=== PATIENT | female | born 1995 | race African-American/Black ===

== ENCOUNTER 2021-01-14 10:18 | Outpatient (REF) | payer OTHER, SELFPAY ==
[2021-01-15 00:19] LABS: CT PCR NOT DETECTED (Not Detect.); NG PCR NOT DETECTED (Not Detect.)
[2021-01-15 09:06] LABS: BV Int Neg Control Negative (Negative); BV Int Pos Control Positive (Positive)
== END 2021-01-14 10:19 | disposition home or self-care (01) ==
LOC: HO.LAB 10:18
PROVIDERS: Visit Provider Obstetrics & Gynecology
DX: Z01.419 Encounter for gynecological examination (general) (routine) without abnormal findings (principal); Z11.3 Encounter for screening for infections with a predominantly sexual mode of transmission; N93.9 Abnormal uterine and vaginal bleeding, unspecified
CPT/HCPCS: 87480; 87491; 87510; 87591; 87660; 88142

== ENCOUNTER 2021-01-19 10:40 | Outpatient (REF) | payer OTHER, SELFPAY ==
[2021-01-19 11:53] LABS: Estimated Average Glucose 94 mg/dL; Hemoglobin A1c % 4.9 %
[2021-01-19 12:15] LABS: TSH reflex Free T4 1.34 uIU/mL (0.32-4.0)
[2021-01-19 22:34] LABS: HIV AB/AG Nonreactive (Nonreactive)
[2021-01-21 07:58] LABS: HBsAGNum1 0.23 S/CO (0.00-0.99); HIV Num 1 0.06 S/CO (0.00-0.99); Hepatitis B Surface Antigen Negative (Negative)
[2021-01-21 08:07] LABS: Syphilis Screen Nonreactive (Nonreactive)
[2021-01-21 18:08] LABS: Prolactin 11.1 ng/mL
== END 2021-01-19 10:41 | disposition home or self-care (01) ==
LOC: HO.LAB 10:40
PROVIDERS: Visit Provider Obstetrics & Gynecology
DX: N93.9 Abnormal uterine and vaginal bleeding, unspecified (principal); L83 Acanthosis nigricans; Z11.3 Encounter for screening for infections with a predominantly sexual mode of transmission
CPT/HCPCS: 36415; 83036; 83498; 84146; 84443; 86780; 87340; 87389

== ENCOUNTER → 2021-02-06 12:01 | Outpatient (BNVA) | payer OTHER, SELFPAY | PROVIDERS: Visit Provider Obstetrics & Gynecology ==

== ENCOUNTER 2022-12-29 09:14 | Outpatient (REF) | payer OTHER, SELFPAY ==
[2022-12-29 11:08] LABS: Hematocrit 40.6 % (37.0-47.0); Hemoglobin 13.9 g/dl (12.0-16.0); Mean Corpuscular HGB Conc 34.2 g/dl (31.0-35.0); Mean Corpuscular Hemoglobin 26.3 pg (27.0-33.0); Mean Corpuscular Volume 76.9 fL (80.0-98.0); Mean Platelet Volume 10.3 fL (9.4-12.3); Platelet Count 335 X10*3/uL (160-400); Red Blood Count 5.28 X10*6/uL (4.20-5.50); Red Cell Distribution Width 14.2 % (11.0-16.0); White Blood Count 6.4 X10*3/uL (4.8-10.8)
[2022-12-29 12:07] LABS: HBc Num1 0.07 S/CO (0.00-0.79); HCG Quantitative < 2 mIU/mL; HIV AB/AG Nonreactive (Nonreactive); HIV Num 1 0.07 S/CO (0.00-0.99); Hepatitis B Core Antibody Nonreactive (Nonreactive); Thyroid Stimulating Hormone 1.17 uIU/mL (0.32-4.0); ~HepC Num1 0.14 S/CO (0.00-0.79); ~Hepatitis C Antibody Nonreactive (Nonreactive)
[2022-12-29 12:09] LABS: Syphilis Screen Nonreactive (Nonreactive)
[2022-12-29 16:01] LABS: CT PCR NOT DETECTED (Not Detect.); NG PCR NOT DETECTED (Not Detect.)
[2022-12-30 09:07] LABS: BV Int Neg Control Negative (Negative); BV Int Pos Control Positive (Positive)
[2022-12-31 01:39] LABS: DHEA Sulfate 77 mcg/dL (14-349); Prolactin 12.5 ng/mL
[2023-01-06 11:48] LABS: Testosterone, Free 6.9 pg/mL (0.1-6.4); Testosterone, Total 63 ng/dL (2-45)
== END 2022-12-29 09:15 | disposition home or self-care (01) ==
LOC: HO.LAB 09:14
PROVIDERS: Visit Provider Advanced Practice Midwife
DX: Z01.419 Encounter for gynecological examination (general) (routine) without abnormal findings (principal); L68.0 Hirsutism; L70.9 Acne, unspecified; N92.6 Irregular menstruation, unspecified; N89.8 Other specified noninflammatory disorders of vagina; E28.2 Polycystic ovarian syndrome; Z20.2 Contact with and (suspected) exposure to infections with a predominantly sexual mode of transmission
CPT/HCPCS: 0353U; 82627; 83498; 84146; 84402; 84403; 84443; 84702; 85027; 86704; 86780; 86803; 87389; 87480; 87510; 87660

== ENCOUNTER 2022-12-29 09:51 | Outpatient (REF) | payer OTHER, SELFPAY | END 2022-12-29 09:52 | disposition home or self-care (01) | LOC: HO.LNP 09:51 | PROVIDERS: Visit Provider Advanced Practice Midwife | DX: Z13.89 Encounter for screening for other disorder (principal) ==

== ENCOUNTER 2023-01-09 13:14 | Outpatient (REF) | payer OTHER, SELFPAY ==
--- NOTE | ~2023-01-09 | US_ITS ---
EXAMINATION: US PELVIS CLINICAL INFORMATION: Irregular menstruation. COMPARISON: Ultrasound pelvis 04/09/2018. TECHNIQUE: Ultrasound of the pelvis is performed using both transabdominal and transvaginal transducers along with Doppler. Transvaginal imaging is performed due to inadequate visualization transabdominally. FINDINGS: Uterus: The uterus is anteverted and measures 8.1 cm in length, 4.2 cm in AP and 4.1 cm in transverse dimension. The double wall endometrial thickness is 0.6 cm. The uterus is smooth in contour and has normal myometrial echogenicity. No visible fibroid. Adnexa: Both ovaries are visualized. There is normal color flow to the adnexa. There is no ovarian torsion. There is no pelvic ascites or fluid collection. Right ovary measures 3.4 x 2.7 x 2.3 cm. There are small follicles visualized. Previously right ovary measured 3.2 x 1.5 x 1.7 cm. Left ovary measures 3.7 x 2.3 x 3.2 cm. There are small peripheral follicles visualized. Previously left ovary measured 3.2 x 2.0 x 2.3 cm. There is no free fluid in the cul-de-sac. US/US pelvic and transvaginal IMPRESSION: 1. Unremarkable uterus. 2. Small bilateral ovarian follicular cysts. 3. There is no free fluid in cul-de-sac.
== END 2023-01-09 13:15 | disposition home or self-care (01) ==
LOC: HO.US 13:14
PROVIDERS: Visit Provider Advanced Practice Midwife
DX: N92.6 Irregular menstruation, unspecified (principal)
CPT/HCPCS: 76830; 76856

== ENCOUNTER → 2023-01-22 13:42 | Outpatient (BNVA) | payer OTHER, SELFPAY | PROVIDERS: Visit Provider Advanced Practice Midwife | DX: E28.2 Polycystic ovarian syndrome (principal); L68.0 Hirsutism; E66.01 Morbid (severe) obesity due to excess calories; Z68.41 Body mass index [BMI] 40.0-44.9, adult; Z71.2 Person consulting for explanation of examination or test findings | CPT/HCPCS: 99212 ==

== ENCOUNTER 2023-08-19 16:19 | Emergency (ER) | payer OTHER, SELFPAY ==
[2023-08-19 16:29] VITALS: BP 130/81; PULSE 95; RESP 117; TEMP 36.6; O2SAT 97; BMI 43.0
--- NOTE | 2023-08-19 16:35 | ED.GENADULT ---
HPI - General Adult General Chief complaint: Upper Respiratory Symptoms Stated complaint: throat pain, swollen, can't swallow Time Seen by Provider: 08/19/23 18:16 Source: patient Mode of arrival: ambulatory Limitations: no limitations History of Present Illness HPI narrative: 27 yold female presents to the ED for sore throat and coughing for one week. patient denies any chest pain, shortness of breath, drooling, or change in voice. Related Data Previous Rx's Medication Instructions Recorded medroxyprogesterone 10 mg tablet 10 mg PO DAILY 10 days #10 tabs 01/22/23 (Provera) Allergies Allergy/AdvReac Type Severity Reaction Status Date / Time No Known Allergies Allergy Verified 01/22/23 13:44 [No Known Allergies*] Review of Systems Review of Systems: sore throat and coughing Yes all other systems are reviewed and are negative PMFSH Past Medical History Medical History Hirsutism Morbid obesity with BMI of 45.0-49.9, adult PCOS (polycystic ovarian syndrome) Scoliosis Family History Family History Father Diabetes Renal failure Maternal Grandmother No problems noted. 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 Gender identity: Female Physical Exam ED Vital Signs: Vital Signs - 24 hr 08/19/23 16:29 Temperature 97.9 F Pulse Rate 95 Respiratory Rate 117 H Blood Pressure 130/81 Pulse Oximetry 97 Oxygen Delivery Method Room Air BMI result Body Mass Index 43.0 Const General: cooperative, healthy appearing, comfortable, no acute distress, well developed, alert and awake Orientation/consciousness: oriented to person, oriented to place, oriented to time and patient oriented x3 HENMT Head: Yes normal to inspection, Yes No palpable skull fracture present, Yes normocephalic and Yes atraumatic Ears: hearing grossly normal bilaterally, external ears normal, TM's normal bilaterally, TM normal on the right, TM normal on the left, EAC's normal, mastoids normal and no periauricular adenopathy General nose exam: Normal external nose present, Normal nares present and No nasal polyps present Face and sinus: Yes normal facial exam, Yes sinuses nontender and Yes face symmetric Mouth: Normal oral and palatal mucosa present, lip normal and tongue normal Teeth and gingiva: dentition normal and gingiva normal Throat: Yes posterior oropharynx normal, Yes tonsils normal and Yes uvula midline Eyes General: appearance normal, both eyes and all related structures Neck Neck: Yes normal visual inspection, Yes full ROM, Yes no lymphadenopathy, Yes no meningeal signs, Yes trachea midline, Yes supple, No anterior neck swelling and No tender Chest Chest palpation & inspection: normal inspection of the chest and normal palpation of entire chest wall Breast/axilla inspection: normal inspection of the breasts Resp Effort & Inspection: normal respiratory effort and able to speak in complete sentences Auscultation: clear to auscultation bilaterally Cardio Jugular venous distension: no JVD Heart sounds: S1 normal heart sound present and S2 normal heart sound present GI Inspection: Yes normal to inspection and No abdominal wall ecchymosis Palpation (GI): Soft to palpation, not firm, nontender, no guarding and not rigid General: Yes no CVA tenderness Back/Spine/Pelvis Back: no CVA tenderness and No back tenderness Skin General skin exam: no rashes or lesions noted, elasticity normal and turgor normal Neuro General: oriented to person, oriented to place, oriented to time, patient oriented x3, gait normal, tone normal, moves all extremities, Normal light touch and pain sensation, no meningeal signs, no focal motor deficits, CN's II-XI intact bilaterally and normal sensation to monofilament Extrem General: Yes normal to inspection, Yes full ROM and Yes capillary refill normal Right lower extremity: normal to inspection, full ROM and normal capillary refill Psych Appearance: grossly normal, well kempt and not disheveled Course Course Course Narrative: RME: 27 yold female presents to the ED for sore throat and cough for one week. patient denies any chest pain or shorntess of breath. negative for signs of peritonsillar abscess on inspecition of oral cavity. Medical Decision Making Medical Decision Making MDM Narrative: RME: 27 yold female presents to the ED sore throat for one week. Patient states couhing started today. Patient states no chest pain or shortness of breath. Patient denies any abdominal pain, drooling, neck swellng, change in voice, trouble eating food, or trouble drinking liquid. patient states no symptoms. Patient states no pleurisy, leg swelling, or calf pain. patient is well appearing. Differential Diagnosis Differential Diagnoses: The differential diagnosis associated with the presentation includes (Covid, RSV, strep, and influenza) Lab Data MDM Lab Attestation statement: I reviewed the patient's lab results. Labs: Lab Results 08/19/23 Range/Units 16:38 Influenza Type A (PCR) NEGATIVE (Negative) Influenza Type B (PCR) NEGATIVE (Negative) RSV RNA Qual (PCR) NEGATIVE (Negative) SARS-CoV-2 RNA (RT-PCR) NEGATIVE (Negative) S. pyogenes GrpA ADRIANNE Negative (Negative) External Record Review External record reviewed: Other (Prior Visist) Prescription Management I considered prescription management with: Other (cough medication, nsaids) Discharge Plan Discharge Clinical Impression: Upper respiratory infection, Pharyngitis Patient Disposition: Home, Self-Care Instructions: Pharyngitis (ED), Upper Respiratory Infection (ED) Additional Instructions: Return to the ED immediately for any drooling, change in voice, chest pain, shortness of breath, neck swelling, coughing up blood, fever, chills, or any other concerning symptoms. please follow up with PCP. Prescriptions: No Action medroxyprogesterone [Provera] 10 mg tablet 10 mg PO DAILY 10 Days Qty: 10 3RF Stand Alone Forms: Work/School Release Interventions: ED Discharge Assessment Last Done: 08/19/23 18:23 Discharge Date/Time: 08/19/23 18:23 Print Language: Algerian
[2023-08-19 17:31] LABS: IDNOW Serial# 08D9AD1C; Strep A Nucleic Acid Negative (Negative)
[2023-08-19 17:36] LABS: Influenza A PCR NEGATIVE (Negative); Influenza B PCR NEGATIVE (Negative); Resp Syncy Virus RNA Qual PCR NEGATIVE (Negative); SARS COV2 PCR INHOUSE NEGATIVE (Negative)
== END 2023-08-19 18:23 | disposition home or self-care (01) ==
PROVIDERS: Physician Assistant; Emergency Provider Internal Medicine
DX: J06.9 Acute upper respiratory infection, unspecified (principal); J02.9 Acute pharyngitis, unspecified; E66.9 Obesity, unspecified; Z68.41 Body mass index [BMI] 40.0-44.9, adult; Z20.822 Contact with and (suspected) exposure to COVID-19; Z20.828 Contact with and (suspected) exposure to other viral communicable diseases
CPT/HCPCS: 0241U; 87651; 99282; 99283

== ENCOUNTER 2024-01-01 09:04 | Outpatient (REF) | payer OTHER, SELFPAY | END 2024-01-01 09:05 | disposition home or self-care (01) | LOC: HO.LNP 09:04 | PROVIDERS: Visit Provider Advanced Practice Midwife | DX: Z01.419 Encounter for gynecological examination (general) (routine) without abnormal findings (principal); O26.899 Other specified pregnancy related conditions, unspecified trimester; N89.8 Other specified noninflammatory disorders of vagina; R10.9 Unspecified abdominal pain; N63.20 Unspecified lump in the left breast, unspecified quadrant; Z87.42 Personal history of other diseases of the female genital tract | CPT/HCPCS: 81025; 88142; 99395 ==

== ENCOUNTER 2024-01-01 09:04 | Outpatient (AMB) | payer OTHER, SELFPAY ==
--- NOTE | 2024-01-01 09:06 | MHC.OFFVIS ---
Intake Vital Signs 01/01/24 09:11 Height 5 ft 7 in Weight 298 lb BMI 46.7 BP 120/78 Intake Visit Reasons: Annual Information Interpreted: non-clinical & clinical Hog Trader: Hog Trader Present Accompanied by: Self / Same As Patient Allergies No Known Allergies [No Known Allergies*] Allergy (Verified 01/01/24 09:08) Is last menstrual period known: Yes Last menstrual period: 12/06/23 Post menopausal: No Patient : Yes HPI HPI Comments History of Present Illness Details She is a premenopausal woman presenting for annual examination. Doing well with concerns: Positive home test on December 21. Newly dating accepting of unplanned . LMP was known and regular of 12/06/2023. History of PCOS, with irregular periods in the past. She has a vegan diet, and stays active with exercise. She is asking if she can wear an abdominal compression spinal support band while she lifts weights. She plans to keep the even if she single parenting, she reports her 5-year-old was raised without a father figure. Currently on Augmentin for dental infection due to have dental procedure next month. She reports some vaginal irritation, feels like it is yeast. She reports random abdominal pain throughout the whole area. Last pap smear 2020, negative. [facility] Medical History Hirsutism Morbid obesity with BMI of 45.0-49.9, adult PCOS (polycystic ovarian syndrome) Scoliosis Family History Father Diabetes Renal failure Maternal Grandmother No problems noted. 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 Gender identity: Female Female Reproductive History Menstrual Duration of menses: 3-5 days Date of last menstrual period: 12/06/23 control method: none Total pregnancies: 2 Full term: 1 Number of Living Children: 1 Ab spontaneous: 1 Date of last pap smear: 01/15/21 Review of Systems Const All systems reviewed & are unremarkable except as noted in HPI and below Reports as per HPI Eyes Reports no additional complaints ENT Reports no additional complaints Card Reports no additional complaints Resp Reports no additional complaints GI Reports as per HPI and Reports no additional complaints Reports as per HPI Musc Reports no additional complaints Skin/Breast Reports as per HPI Neuro Reports no additional complaints Psych Reports no additional complaints Endo Reports no additional complaints Reece/Lymph Reports no additional complaints Aller/Immun Reports no additional complaints Physical Exam Vital Signs: Last Vital Signs BP 120/78 01/01/24 09:11 BMI result Body Mass Index 46.7 Const General: cooperative, healthy appearing, no acute distress, well developed and alert Orientation/consciousness: patient oriented x3 HEENT Head: Yes normal to inspection Eyes General: appearance normal, both eyes and all related structures Neck Neck: Yes normal visual inspection Thyroid: Thyroid normal Chest Other: Breast thickening on the left breast at 10 to 11 o'clock position tender with exam Chest palpation & inspection: normal inspection of the chest and other (no puckering, dimpling, peau de orange, retraction, discharge, masses) Breast/axilla inspection: normal inspection of the breasts Breast/axilla palpation: normal palpation of the breasts Resp Effort & Inspection: normal respiratory effort GI Inspection: Yes normal to inspection and Yes obesity Palpation (GI): Soft to palpation Rectal Exam - Female: deferred General: Yes bladder normal to palpation External Female Exam: normal external appearance and normal appearance of the urethra Speculum Exam - Vagina: normal appearance of the vagina, normal palpation and normal vaginal discharge Speculum Exam - Cervix: normal appearance of the cervix, normal palpation and Other cervical findings present (Bled with Pap) Bimanual exam- vagina & uterus: normal bimanual exam, normal palpation, uterine size normal, bladder normal to palpation, normal palpation and non-tender Bimanual Exam- Adnexa, other: no masses Skin General skin exam: no rashes or lesions noted Rashes: no rashes Neuro General: patient oriented x3 Cognition (Neuro): normal cognition Extrem General: Yes normal to inspection Psych Attitude: cooperative Thought process: Normal thought process present Results AMB Test Urine AMB Test Urine Positive Last Edit by Holly Roy MA on 01/01/24 09:20 Results Reviewed Results Reviewed: Laboratory Last Values [facility]st Clinic Positive 01/01/24 09:19 Assessment & Plan Assessment & Plan (1) Late menses: Code(s): N92.6 - Irregular menstruation, unspecified (2) Encounter for well woman exam with routine gynecological exam: Code(s): Z01.419 - Encounter for gynecological examination (general) (routine) without abnormal findings (3) Positive test: Code(s): Z32.01 - Encounter for test, result positive (4) History of PCOS: Code(s): Z87.42 - Personal history of other diseases of the female genital tract (5) History of irregular menstrual bleeding: Code(s): Z87.42 - Personal history of other diseases of the female genital tract (6) Vaginal irritation: Code(s): N89.8 - Other specified noninflammatory disorders of vagina (7) Left breast lump: Code(s): N63.20 - Unspecified lump in the left breast, unspecified quadrant Qualifiers: Breast mass location: unspecified quadrant Qualified Code(s): N63.20 - Unspecified lump in the left breast, unspecified quadrant Plan Discussed: Discussed options, she plans to keep the . Current recommendations for pap smears per ASCCP guidelines. Breast awareness and periodic breast exams. Maintain a healthy lifestyle including a well balanced diet and routine exercise. Advised to maintain protein in her vegan diet through other non animal sources. Further discussion with the nurse on a intake visit will be provided if needed sooner to let us know. Advised pelvic warnings if any vaginal bleeding, pelvic pain to notify the office. Spotting from today's Pap is normal due to the increased vascularization. Plan beta HCG today, await results for plan of care. Advised her to tell her dental provider that she is before her surgery date. Return to the office for her breast evaluation and breast ultrasound is complete. Advised against heavy weight lifting during due to risk of injury for ligaments, joints,compression of vertebrae. Use of a alternative exercises that are safer in to minimize risk of injury. Patient verbalizes understanding and agrees to the plan of care. She was given opportunity to ask questions and all questions were answered to the best of my ability. RTO in one year for annual commodity management specialist examination. This note is constructed using voice recognition software. While every effort has been made to ensure accuracy, certified retinal angiographer errors may have been included. Orders: Orders AMB HCG Urine Test Today Z32.01 - Encounter for test, result positive CT NG by PCR Today N63.20 - Unspecified lump in the left breast, unspecified quadrant, Z01.419 - Encounter for gynecological examination (general) (routine) without abnormal findings HCG Quantitative Today N92.6 - Irregular menstruation, unspecified Pap Smear Today Z01.419 - Encounter for gynecological examination (general) (routine) without abnormal findings Bacterial Vaginosis Panel Today N63.20 - Unspecified lump in the left breast, unspecified quadrant, Z01.419 - Encounter for gynecological examination (general) (routine) without abnormal findings US breast LT complete Today N63.20 - Unspecified lump in the left breast, unspecified quadrant Referrals Medical Weight Management Referral E66.9 - Obesity, unspecified Medications: New PNV [id number] 400 mcg-35 mg- 25 mg-5 mg ( Gummies) 1 tab PO DAILY 90 tabs 4RF Coding Level of Care Code Est Pt Prev Care 18-39y(11123) Diagnoses Late menses N92.6 Encounter for well woman exam with routine gynecological exam Z01.419 Positive test Z32.01 History of PCOS Z87.42 History of irregular menstrual bleeding Z87.42 Vaginal irritation N89.8 Mass of left breast, unspecified quadrant N63.20 Breast mass location: unspecified quadrant
[2024-01-01 09:11] VITALS: BP 120/78; BMI 46.7
== END 2024-01-01 09:45 | disposition home or self-care (01) ==
PROVIDERS: Visit Provider Advanced Practice Midwife
DX: Z01.419 Encounter for gynecological examination (general) (routine) without abnormal findings (principal); N92.6 Irregular menstruation, unspecified; N89.8 Other specified noninflammatory disorders of vagina; Z87.42 Personal history of other diseases of the female genital tract; N63.20 Unspecified lump in the left breast, unspecified quadrant; Z32.01 Encounter for pregnancy test, result positive
CPT/HCPCS: 99395

== ENCOUNTER 2024-01-01 09:55 | Outpatient (REF) | payer OTHER, SELFPAY ==
[2024-01-01 12:41] LABS: HCG Quantitative 11491 mIU/mL
[2024-01-01 15:00] LABS: CT PCR NOT DETECTED (Not Detect.); NG PCR NOT DETECTED (Not Detect.)
[2024-01-02 12:05] LABS: BV Int Neg Control Negative (Negative); BV Int Pos Control Positive (Positive)
== END 2024-01-01 09:56 | disposition home or self-care (01) ==
LOC: HO.LAB 09:55
PROVIDERS: Visit Provider Advanced Practice Midwife
DX: Z01.419 Encounter for gynecological examination (general) (routine) without abnormal findings (principal); N63.20 Unspecified lump in the left breast, unspecified quadrant; N92.6 Irregular menstruation, unspecified
CPT/HCPCS: 0353U; 84702; 87480; 87510; 87660

== ENCOUNTER 2024-01-07 13:39 | Outpatient (REF) | payer OTHER, SELFPAY ==
--- NOTE | ~2024-01-07 | US_ITS ---
EXAMINATION: US OBSTETRICAL ULTRASOUND CLINICAL INFORMATION: Irregular menstruation. Positive test. COMPARISON: Pelvic ultrasound January 09, 2023 LMP: December 06, 2023. Gestational age by maternal dates is 4 weeks and 4 days. Estimated date of delivery by maternal dates is September 11, 2024. TECHNIQUE: Transabdominal and transvaginal imaging of the pelvis was obtained. FINDINGS: There is a single intrauterine gestational sac with visible yolk sac, embryo/fetus, and cardiac activity. There is no significant subchorionic hemorrhage or hematoma. HR: 123 beats per minute. CRL (crown rump length): 0.57 cm (6 weeks and 3 days +/- 4 days). KATHARINA (estimated date of delivery): August 29, 2024 +/- 4 days. MATERNAL ADNEXA: The right maternal ovary measures 4.7 x 2.4 x 2.6 cm. There is a 2.2 cm cyst of the right ovary. The left maternal ovary measures 3.0 x 2.1 x 2.5 cm. There is no significant maternal adnexal mass. Small volume fluid within the pelvis. US/US OB pelvic and transvaginal IMPRESSION: 1. Single intrauterine gestation with ultrasound gestational age of 6 weeks and 3 days +/- 4 days. 2. Estimated date of delivery is August 29, 2024 +/- 4 days. 3. Small volume pelvic ascites.
== END 2024-01-07 13:40 | disposition home or self-care (01) ==
LOC: HO.US 13:39
PROVIDERS: Visit Provider Advanced Practice Midwife
DX: Z34.91 Encounter for supervision of normal pregnancy, unspecified, first trimester (principal)
CPT/HCPCS: 76801; 76817

== ENCOUNTER 2024-01-08 13:44 | Outpatient (REF) | payer OTHER, SELFPAY ==
--- NOTE | ~2024-01-08 | US_ITS ---
EXAMINATION: US DIAGNOSTIC ULTRASOUND BREAST, LEFT CLINICAL INFORMATION: Early , left breast tenderness with palpable mass noted at the 10:00 to 11:00 position of the left breast.. COMPARISON: None available. TECHNIQUE: Ultrasound of the breast is performed with real-time roa scale imaging and color Doppler. Attention was given to the 9:00 to the 1:00 axis of the left breast to include the area of concern. FINDINGS: There is no focal suspicious finding. There is no solid mass, architectural abnormality, duct ectasia, or edema in the soft tissue planes. There is no cystic abnormality. No ultrasonographic correlate to the region of palpable concern and tenderness is evident. Only moderately dense fibroglandular tissue is identified. Results are discussed with the patient at time of visit. US/US breast LT limited mamm only IMPRESSION: No findings suspicious for malignancy left breast. No ultrasonographic correlate to the region of palpable concern and tenderness left breast 10:00 to 11:00 axis. Recommend clinical management. ASSESSMENT: BI-RADS 1 - Negative RECOMMENDATION: 1. Patient should be managed based on the clinical impression. Decision to proceed with biopsy should be based on clinical grounds and degree of clinical concern. This patient's information was entered into a reminder system with a target due date for their next mammogram.
== END 2024-01-08 13:45 | disposition home or self-care (01) ==
LOC: HO.MAMMO 13:44
PROVIDERS: Visit Provider Advanced Practice Midwife
DX: N63.22 Unspecified lump in the left breast, upper inner quadrant (principal)
CPT/HCPCS: 76642

== ENCOUNTER → 2024-01-08 14:00 | Outpatient (BNV) | payer OTHER, SELFPAY | PROVIDERS: Visit Provider Radiology Diagnostic Radiology | DX: N64.4 Mastodynia (principal) | CPT/HCPCS: 76642 ==

== ENCOUNTER 2024-01-27 15:22 | Outpatient (REF) | payer OTHER, SELFPAY ==
[2024-01-28 12:56] LABS: BV Int Neg Control Negative (Negative); BV Int Pos Control Positive (Positive)
== END 2024-01-27 15:23 | disposition home or self-care (01) ==
LOC: HO.LAB 15:22
PROVIDERS: Visit Provider Advanced Practice Midwife
DX: N89.8 Other specified noninflammatory disorders of vagina (principal); L68.0 Hirsutism; E66.01 Morbid (severe) obesity due to excess calories; Z68.42 Body mass index [BMI] 45.0-49.9, adult; E28.2 Polycystic ovarian syndrome; M41.9 Scoliosis, unspecified; Z34.91 Encounter for supervision of normal pregnancy, unspecified, first trimester; Z3A.09 9 weeks gestation of pregnancy
CPT/HCPCS: 87480; 87510; 87660; 99212

== ENCOUNTER 2024-01-27 15:22 | Outpatient (AMB) | payer OTHER, SELFPAY ==
[2024-01-27 15:55] VITALS: BP 116/76
--- NOTE | 2024-01-27 15:55 | A.OFFVIS_ITS ---
Intake Vital Signs 01/27/24 15:55 Height 5 ft 7 in BP 116/76 Intake Visit Reasons: Breast ultra sound follow up Allergies No Known Allergies [No Known Allergies*] Allergy (Verified 01/27/24 15:55) HPI HPI Comments History of Present Illness Details Patient is here today for a follow up test results she had a prior exam with noted breast fullness at 10:00 o'clock position at her left breast. She does self-breast exam and does not notice any difference is in her exam. She is currently 9 weeks 2 days with an EDC of 08/29/2024. She is going to follow up at [facility] for care advised to call soon for her appointments. She reports some vaginal irritation possibly a yeast infection following a course of antibiotics for dental care. [facility] Medical History Hirsutism Morbid obesity with BMI of 45.0-49.9, adult PCOS (polycystic ovarian syndrome) Scoliosis Family History Father Diabetes Renal failure Maternal Grandmother No problems noted. 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 Gender identity: Female Review of Systems Const All systems reviewed & are unremarkable except as noted in HPI and below Reports as per HPI Eyes Reports no additional complaints ENT Reports no additional complaints Card Reports no additional complaints Resp Reports no additional complaints GI Reports as per HPI and Reports no additional complaints Reports as per HPI Musc Reports no additional complaints Skin/Breast Reports as per HPI Neuro Reports no additional complaints Psych Reports no additional complaints Endo Reports no additional complaints Reece/Lymph Reports no additional complaints Aller/Immun Reports no additional complaints Physical Exam Vital Signs: Last Vital Signs BP 116/76 01/27/24 15:55 Const General: cooperative, healthy appearing, no acute distress, well developed and alert Orientation/consciousness: patient oriented x3 HEENT Head: Yes normal to inspection Eyes General: appearance normal, both eyes and all related structures Neck Neck: Yes normal visual inspection Thyroid: Thyroid normal Chest Chest palpation & inspection: normal inspection of the chest and other (no puckering, dimpling, peau de orange, retraction, discharge, masses) Breast/axilla inspection: normal inspection of the breasts Breast/axilla palpation: normal palpation of the breasts Resp Effort & Inspection: normal respiratory effort GI Inspection: Yes normal to inspection Palpation (GI): Soft to palpation Rectal Exam - Female: deferred General: Yes bladder normal to palpation External Female Exam: normal external appearance and normal appearance of the urethra Speculum Exam - Vagina: normal appearance of the vagina, normal palpation and normal vaginal discharge Speculum Exam - Cervix: normal appearance of the cervix and normal palpation Bimanual exam- vagina & uterus: normal bimanual exam, normal palpation, uterine size normal, bladder normal to palpation, normal palpation and non-tender Bimanual Exam- Adnexa, other: no masses Skin General skin exam: no rashes or lesions noted Rashes: no rashes Neuro General: patient oriented x3 Cognition (Neuro): normal cognition Extrem General: Yes normal to inspection Psych Attitude: cooperative Thought process: Normal thought process present Assessment & Plan Assessment & Plan (1) Vaginal irritation: Code(s): N89.8 - Other specified noninflammatory disorders of vagina (2) Encounter to discuss test results: Code(s): Z71.2 - Person consulting for explanation of examination or test findings Plan BV panel obtained. Await test results for plan of care and treatment. Reassured normal breast exam today discussed normal changes during , if any concerns to report to her provider sooner. Follow up at [facility] for care encouraged to call soon because she will need some upcoming appointments to be scheduled. All of her questions and concerns were addressed to the best of my ability and shared decision making. She is agreeable to the plan of care. This note is constructed using voice recognition software. While every effort has been made to ensure accuracy, bioinformatics developer errors may have been included. Orders: Orders Bacterial Vaginosis Panel 01/27/24 N89.8 - Other specified noninflammatory disorders of vagina Coding Level of Care Code Est Pt Level 3 (57836) Diagnoses Vaginal irritation N89.8 Encounter to discuss test results Z71.2
== END 2024-01-28 08:01 | disposition home or self-care (01) ==
LOC: HO.HWS 15:22
PROVIDERS: Visit Provider Advanced Practice Midwife
DX: N89.8 Other specified noninflammatory disorders of vagina (principal); Z71.2 Person consulting for explanation of examination or test findings
CPT/HCPCS: 99213

== ENCOUNTER 2024-02-19 09:04 | Emergency (ER) | payer OTHER, SELFPAY ==
[2024-02-19] VITALS (8 sets, daily range): BP systolic 110–127; BP diastolic 61–75; PULSE 73–93; RESP 16–20; TEMP 36.6; O2SAT 98–100; BMI 46.5
--- NOTE | 2024-02-19 09:08 | ECG_ITS ---
Test Reason : syncope Blood Pressure : / mmHG Vent. Rate : 088 BPM Atrial Rate : 088 BPM P-R Int : 130 ms QRS Dur : 074 ms QT Int : 358 ms P-R-T Axes : 035 000 008 degrees QTc Int : 433 ms Normal sinus rhythm Normal ECG When compared with ECG of 29-OCT-2012 14:58, No significant change was found Referred By: Rosetta Lucas Electronically Signed By:KACEY MCCONNELL MD
--- NOTE | 2024-02-19 09:45 | ED.SYNCOPE ---
HPI - Syncope General Chief Complaint: Syncope Stated Complaint: passing out, chest pain, migraines ? Time Seen by Provider: 02/19/24 09:08 Source: patient Mode of arrival: ambulatory History of Present Illness HPI narrative: 28-year-old female, at 11.1 weeks, had OB appointment yesterday with assessment ultrasound without any acute findings, states that for 2 months she has been having passing out episodes and does report that 2 weeks ago she had a viral illness with fevers, nausea, vomiting as well as diarrhea. Patient states that her form setter supervisor noted that she had a murmur yesterday and directed her to the emergency room but she decided not to go. She otherwise denies any abdominal pain/vaginal bleeding/loss of fluid. Patient denies any alcohol/smoking/illicit drugs/recent travel. Related Data Previous Rx's ?Medication ?Instructions ?Recorded PNV 153-FA 400 mcg-om3 35 mg-dha 1 tab PO DAILY #90 tabs 01/01/24 25 mg-epa 5 mg-fish oil chew tablet ( Gummies) Allergies Allergy/AdvReac Type Severity Reaction Status Date / Time No Known Allergies Allergy Verified 02/19/24 09:22 [No Known Allergies*] Review of Systems Review of Systems: Pertinent positives and negatives as stated in HPI PMFSH Past Medical History Source: nursing notes reviewed Medical History Hirsutism Morbid obesity with BMI of 45.0-49.9, adult PCOS (polycystic ovarian syndrome) Scoliosis Family History Family History Father Diabetes Renal failure Maternal Grandmother No problems noted. 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 GENERAL: Elevated BMI, Well developed, well nourished, in no acute distress. HEAD: Normocephalic/atraumatic, EYES: PERRLA, EOMI EARS: Ext canals without abnormality NOSE: Nares patent bilateral OROPHARYNX: no oral lesions noted, posterior pharynx clear NECK: Supple, no adenopathy LUNGS: Normal breath sounds. No adventitious sounds or accessory muscle use. SpO2<100> CARDIOVASCULAR: Regular rate and rhythm without noted murmurs ABDOMEN: Soft, non-tender, non-distended with bowel sounds. MUSCULOSKELETAL: No tenderness, deformities, or effusions noted on gross inspection. EXTREMITIES: No cyanosis, clubbing or edema. SKIN: Inspection of the skin reveals no rashes NEUROLOGIC: Alert and oriented x 4. Strength and sensation to light touch were grossly intact x 4. Medical Decision Making Medical Decision Making [facility] Narrative: 0910: 28-year-old female, currently , will rule out infection/postural hypotension/electrolyte derangement/UTI/arrhythmia. I reviewed all investigations and hematologic indices are negative for leukocytosis or left shift, there is no anemia or thrombocytopenia. Chemistry to seizure grossly within normal limits without any derangements, urinalysis negative for UTI or hematuria. Viral testing is negative for influenza/RSV/COVID-19. Orthostatics are negative. EKG does not demonstrate an arrhythmia. 28-year-old female who is workup is otherwise benign in nature today, she was strongly encouraged to follow-up as directed by her form setter supervisor, will also provide her with a referral to follow-up with cardiology to evaluate for any other etiology for her 2 months of passing out . She was encouraged to continue drinking plenty of fluids. Differential Diagnosis Differential Diagnoses: The differential diagnosis associated with the presentation includes Please see the discussion above Admission/Observation Consideration of admission/observation: Escalation of care including admission/observation considered Please see the discussion above Lab Data [facility] Lab Attestation statement: I reviewed the patient's lab results. Please see the discussion above 02/19/24 09:52 02/19/24 09:52 Labs: Lab Results 02/19/24 02/19/24 02/19/24 Range/Units 09:42 09:45 09:52 WBC 9.7 (4.8-10.8) X10*3/uL RBC 4.63 (4.20-5.50) X10*6/uL Hgb 12.8 (12.0-16.0) g/dl Hct 35.7 L (37.0-47.0) % MCV 77.1 L (80.0-98.0) fL MCH 27.6 (27.0-33.0) pg MCHC 35.9 H (31.0-35.0) g/dl RDW 13.4 (11.0-16.0) % Plt Count 307 (160-400) X10*3/uL MPV 9.4 (9.4-12.3) fL Immature Gran % (Auto) 0.6 H (0.0-0.4) % Neut % (Auto) 73.0 (45-73) % Lymph % (Auto) 18.4 L (20-40) % [place] % (Auto) 5.7 (2-11) % Eos % (Auto) 2.0 (0-4) % Baso % (Auto) 0.3 (0-2) % Lymph # (Auto) 1.8 (1.2-4.9) X10*3/uL [place] # (Auto) 0.6 (0.1-1.2) X10*3/uL Eos # (Auto) 0.2 (0.0-0.4) X10*3/uL Baso # (Auto) 0.0 (0.0-0.2) X10*3/uL Abs Immat Gran (auto) 0.06 H (0.00-0.03) X10*3/uL Absolute Neuts (auto) 7.1 (2.0-8.3) x10*3/uL Absolute Nucleated RBC 0.000 (0.0-0.012) X10*3/uL Nucleated RBC % (auto) 0.0 (0.0-0.2) /100WBC Sodium 138 (135-145) mmol/L Potassium 3.8 (3.3-5.1) mmol/L Chloride 107 (96-108) mmol/L Carbon Dioxide 25 (22-29) mmol/L Anion Gap 10 L (12-20) BUN 10 (9-16) mg/dL Creatinine 0.70 (0.5-1.4) mg/dL Estim Creat Clear Calc 171.5 Estimated GFR > 60 Random Glucose 85 (60-115) mg/dL Calcium 9.0 (8.4-10.2) mg/dL Total Bilirubin 0.2 (0.0-1.0) mg/dL AST 15 (5-31) U/L ALT 13 (0-31) U/L Alkaline Phosphatase 45 (39-117) U/L Total Protein 6.8 (6.5-8.0) g/dL Albumin 3.5 (3.5-5.0) g/dL Beta HCG, Quant 03036 mIU/mL Urine Color Yellow Urine Appearance Cloudy Urine pH 6.5 (5.0-9.0) Ur Specific [place] 1.025 (1.005-1.025) Urine Protein Trace (Neg-Trace) mg/dL Urine Glucose (UA) Negative (Negative) mg/dL Urine Ketones Trace (Negative) mg/dL Urine Blood Negative (Negative) Urine Nitrite Negative (Negative) Ur Leukocyte Esterase Negative (Negative) Influenza Type A (PCR) NEGATIVE (Negative) Influenza Type B (PCR) NEGATIVE (Negative) RSV RNA Qual (PCR) NEGATIVE (Negative) SARS-CoV-2 RNA (RT-PCR) NEGATIVE (Negative) Independent Interpretation I performed an independent interpretation of an: EKG Interpretation: Normal sinus rhythm, HR-88, no STEMI, VT/QRS/QTC are within normal limits. External Record Review External record reviewed: Outpatient record and Prior outpatient labs Critical Care Time Critical Care Time Critical Care Time: Yes Total Critical Care Time: 45 Attestation: I personally attest to this time spent taking care of the patient. Discharge Plan Discharge Clinical Impression: Vasovagal near syncope, Hypovolemia, Patient Disposition: Home, Self-Care Instructions: (ED), Dehydration (ED), Near Syncope (ED) Additional Instructions: 1. Continue with your scheduled appointments with your form setter supervisor at [facility], please adhere to their recommendations and continue taking vitamins daily. 2. Drink plenty of fluids, as this can contribute to your symptoms. Your workup today was otherwise negative but a referral has been provided to you for cardiology. 3. Please follow-up with your primary care doctor and your form setter supervisor. Return to the ER for any worsening symptoms. Prescriptions: No Action Gummies 400 mcg-35 mg- 25 mg-5 mg tablet,chewable 1 tab PO DAILY Qty: 90 4RF Referrals: Kwadwo Bonner MD [Physician] - Print Language: Occitan
[2024-02-19 09:55] LABS: MANUAL DIFF FLAG NO
[2024-02-19 09:58] LABS: Basophils Percent Auto 0.3 % (0-2); Eosinophils Absolute Auto 0.2 X10*3/uL (0.0-0.4); Hematocrit 35.7 % (37.0-47.0); Hemoglobin 12.8 g/dl (12.0-16.0); Imm Gran Abs Auto 0.06 X10*3/uL (0.00-0.03); Imm Gran Pct Auto 0.6 % (0.0-0.4); Lymphocytes Absolute Auto 1.8 X10*3/uL (1.2-4.9); Lymphocytes Percent Auto 18.4 % (20-40); Mean Corpuscular HGB Conc 35.9 g/dl (31.0-35.0); Mean Corpuscular Hemoglobin 27.6 pg (27.0-33.0); Mean Corpuscular Volume 77.1 fL (80.0-98.0); Mean Platelet Volume 9.4 fL (9.4-12.3); Monocytes Absolute Auto 0.6 X10*3/uL (0.1-1.2); Monocytes Percent Auto 5.7 % (2-11); Neutrophils Absolute Auto 7.1 x10*3/uL (2.0-8.3); Platelet Count 307 X10*3/uL (160-400); Red Blood Count 4.63 X10*6/uL (4.20-5.50); Red Cell Distribution Width 13.4 % (11.0-16.0); White Blood Count 9.7 X10*3/uL (4.8-10.8)
[2024-02-19 09:59] LABS: Appearance Urine Cloudy; Color Urine Yellow; Glucose Urine UA Negative (Negative); Leukocyte Esterase Urine Negative (Negative); Nitrite Urine Negative (Negative); PH 6.5 (5.0-9.0); Specific Gravity - Urine 1.025 (1.005-1.025); Urine Blood Negative (Negative); Urine Ketones Trace mg/dL (Negative); Urine Protein Trace mg/dL (Neg-Trace)
[2024-02-19 10:18] LABS: Alanine Aminotransferase 13 U/L (0-31); Albumin Level 3.5 g/dL (3.5-5.0); Alkaline Phosphatase 45 U/L (39-117); Anion Gap 10 (12-20); Aspartate Amino Transferase 15 U/L (5-31); Bilirubin Total 0.2 mg/dL (0.0-1.0); Blood Urea Nitrogen 10 mg/dL (9-16); Carbon Dioxide 25 mmol/L (22-29); Chloride 107 mmol/L (96-108); Creatinine Clr Calc Pharmacy 171.5; Estimated Glomerular Filt Rate > 60; Glucose Random 85 mg/dL (60-115); Potassium 3.8 mmol/L (3.3-5.1); Sodium 138 mmol/L (135-145); Total Protein 6.8 g/dL (6.5-8.0)
[2024-02-19 10:38] LABS: Influenza A PCR NEGATIVE (Negative); Influenza B PCR NEGATIVE (Negative); Resp Syncy Virus RNA Qual PCR NEGATIVE (Negative); SARS COV2 PCR INHOUSE NEGATIVE (Negative)
== END 2024-02-19 11:59 | disposition home or self-care (01) ==
PROVIDERS: Emergency Provider Student in an Organized Health Care Education/Training Program
DX: O26.891 Other specified pregnancy related conditions, first trimester (principal); R55 Syncope and collapse; E86.1 Hypovolemia; Z3A.11 11 weeks gestation of pregnancy; Z11.52 Encounter for screening for COVID-19; Z20.828 Contact with and (suspected) exposure to other viral communicable diseases
CPT/HCPCS: 0241U; 36415; 80053; 81003; 84702; 85025; 93005; 99283; 99285

== ENCOUNTER → 2024-02-19 09:08 | Outpatient (BNV) | payer OTHER, SELFPAY | PROVIDERS: Emergency Provider Student in an Organized Health Care Education/Training Program; Visit Provider Internal Medicine Cardiovascular Disease | DX: R55 Syncope and collapse (principal) | CPT/HCPCS: 93010 ==